=== PATIENT | male | born 1990 | race American Indian/Alaskan Native ===

== ENCOUNTER 2021-01-10 18:54 | Emergency (ER) | payer SELFPAY ==
[2021-01-10 19:17] VITALS: BP 134/81
--- NOTE | 2021-01-10 19:21 | Emergency Department Report ---
Stated Complaint: BLADDER INFECTION/DISCHARGE Time Seen by Provider: 01/10/21 19:19 - HPI History of Present Illness: Patient is a 30-year-old male who presents emergency room for routine STD testing. Patient states that his partner is having discharge. He states that he is not experiencing any symptoms at all. He denies any penile discharge, dysuria, fever, nausea, vomiting, diarrhea, abdominal pain, pain or swelling in the testicles, urinary retention, hematuria. Patient denies any past medical history. No allergies to medications. Vitals are normal On exam: Non toxic appearing, no acute distress atraumatic, normocephalic normal appearance of the eyes, EOMI, no periorbital edema or ecchymosis moist mucus membranes Respiratory distress, no excessive muscle use A&O x4, normal gait Patient is presenting for routine STD testing He denies any symptoms Will be referred to the health department and clinic in order to have a full STD panel Discussed return precautions Patient given the appropriate resources Medical screening examination performed there is no threat to life or limb at this time - Exam Vital Signs: Vital Signs 01/10/21 19:15 Temperature 99.1 F Pulse Rate 68 Respiratory 15 Rate Blood Pressure 134/81 O2 Sat by Pulse 97 Oximetry MSE screening note: Focused history and physical exam performed. ED Disposition for MSE Clinical Impression: Concern about STD in male without diagnosis Disposition: Z-07 MED SCREENING EXAM-LEFT Is pt being admited?: No Does the pt Need Aspirin: No Condition: Stable Additional Instructions: Please follow-up with the clinic or the health department in order to receive a full STD panel. Please have any partner tested and treated as well. Avoid sexual intercourse. Return to emergency room for any new or worsening symptoms. [facility] Address: [address] [place] [id number] Referrals: [facility] Depart [Outside] - 2-3 Days Time of Disposition: 19:19 Print Language: POLISH
== END 2021-01-10 19:29 | disposition left against medical advice (07) ==
LOC: ED 18:54
DX: Z71.1 Person with feared health complaint in whom no diagnosis is made (principal); Z53.21 Procedure and treatment not carried out due to patient leaving prior to being seen by health care provider